=== PATIENT | female | born 1985 | race Caucasian/White ===

== ENCOUNTER 2017-08-03 14:54 | Emergency (ER) | payer MEDICAID ==
[~2017-08-03] VITALS: Ht 152.4 cm; Wt 63.0 kg
[~2017-08-03 14:54] MED LIST: LO LTAB PO; NAPR500 PO; PERC5TAB12 PO; PREN1CAP20 PO; ZOFR4TAB3 PO
[2017-08-03 15:04] VITALS: BP 138/68; PULSE 97; RESP 16; TEMP 98.4; O2SAT 100
[2017-08-03 18:21] LABS: AUTOMATED NEUTROPHIL # 6.4 TH/MM3 (1.8-7.7); BASOPHIL # 0.1 TH/MM3 (0-0.2); BASOPHIL % 0.8 % (0.0-2.0); EOSINOPHIL # 0.1 TH/MM3 (0-0.4); EOSINOPHIL % 1.2 % (0.0-4.0); HEMATOCRIT 41.8 % (35.0-46.0); HEMOGLOBIN 14.3 GM/DL (11.6-15.3); LYMPH % 25.3 % (9.0-44.0); LYMPHOCYTE # 2.5 TH/MM3 (1.0-4.8); MEAN CORPUSCULAR HEMOGLOBIN 30.4 PG (27.0-34.0); MEAN CORPUSCULAR HGB CONC 34.1 % (32.0-36.0); MONO % 7.7 % (0.0-8.0); MONOCYTE # 0.8 TH/MM3 (0-0.9); PLATELET COUNT 317 TH/MM3 (150-450); RED BLOOD COUNT 4.69 MIL/MM3 (4.00-5.30); RED CELL DISTRIBUTION WIDTH 13.7 % (11.6-17.2); WHITE BLOOD COUNT 9.9 TH/MM3 (4.0-11.0)
[2017-08-03 18:22] LABS: ALBUMIN 4.1 GM/DL (3.4-5.0); BICARBONATE 29.8 MEQ/L (21.0-32.0); BLOOD UREA NITROGEN 19 MG/DL (7-18); CALCIUM 9.4 MG/DL (8.5-10.1); CHLORIDE 106 MEQ/L (98-107); GLUCOSE,RANDOM 88 MG/DL (74-106); SODIUM (NA) 140 MEQ/L (136-145)
[2017-08-03 18:28] LABS: ALKALINE PHOSPHATASE 95 U/L (45-117); ALT (GPT) 36 U/L (10-53); AST (GOT) 45 U/L (15-37); CREATININE 1.01 MG/DL (0.50-1.00); GLOMERULAR FILTRATION RATE 64 ML/MIN (>89); TOTAL BILIRUBIN ADULT 0.2 MG/DL (0.2-1.0); TOTAL PROTEIN 8.1 GM/DL (6.4-8.2)
--- NOTE | 2017-08-03 20:34 | PD ---
HPI Chief Complaint: Abdominal Pain Time Seen by Provider: 20:18 Travel History International Travel<30 days: No Contact w/Intl Traveler<30days: No Traveled to known affect area: No History of Present Illness HPI The patient was seen and examined in the presence of the nurse. This patient is complaining of some low central sternal discomfort and pressure. States intermittent. It's been on and off for many months. She thought it was her gallbladder. She has had a gallbladder ultrasound in the past that showed gallstones. Pain is not worse with eating. She has not had fever or vomiting. Rare alcohol use. No alleviating factors. No exacerbating factors. Severity is moderate PFSH Past Medical History Hx Anticoagulant Therapy: No Cardiovascular Problems: No Chemotherapy: No Cerebrovascular Accident: No Diabetes: No Diminished Hearing: No Medical other: Yes (gallstones) Respiratory: No Tetanus Vaccination: < 5 Years ?: Not LMP: 07/29/17 : 1 Para: 1 : 1 Past Surgical History Surgical History: No Previous Surgery Section: Yes Hysterectomy: No Social History Alcohol Use: Yes (weekends) Tobacco Use: No Substance Use: No Allergies-Medications (Allergen,Severity, Reaction): Coded Allergies: No Known Allergies (Unverified Adverse Reaction, Unknown, 08/03/17) Reported Meds & Prescriptions Reported Meds & Active Scripts Active Naprosyn (Naproxen) 500 Mg Tab 500 Mg PO BID PRN Zofran ODT (Ondansetron HCl) 4 Mg Tab 4 Mg PO Q6HR PRN Percocet 5-325 mg (Oxycodone/Acetaminophen) Oxycodone 5/325 Acetaminophen Tab 1 Tab PO Q6H PRN Lo Loestrin Fe (Norethindrone Acetate-Ethinyl) Tab 1 Tab PO DAILY Prenate Mini 18-0.6-0.4-350 mg ( W/O Vit A W/ Fe Carbo) 1 Cap Cap 1 Tab PO DAILY Review of Systems General / Constitutional: No: Fever Eyes: No: Visual changes HENT: No: Headaches Cardiovascular: Positive: Chest Pain or Discomfort Respiratory: No: Shortness of Breath Gastrointestinal: Positive: Abdominal Pain Genitourinary: No: Dysuria Musculoskeletal: No: Pain Skin: No Rash Neurologic: No: Weakness Psychiatric: No: Depression Endocrine: No: Polydipsia Hematologic/Lymphatic: No: Easy Bruising Physical Exam Narrative GENERAL: Well-nourished, well-developed patient in no apparent distress. SKIN: Focused skin assessment reveals no rash and nodules. Skin is Warm and dry. HEAD: Atraumatic. Normocephalic. EYES: Pupils equal and round. No scleral icterus. No injection or drainage. ENT: No nasal bleeding or discharge. Mucous membranes pink and moist. NECK: Trachea midline. No JVD. CARDIOVASCULAR: Regular rate and rhythm. No murmur appreciated. RESPIRATORY: No accessory muscle use. Clear to auscultation. Breath sounds equal bilaterally. GASTROINTESTINAL: Abdomen soft, non-tender, nondistended. Hepatic and splenic margins not palpable. MUSCULOSKELETAL: No obvious deformities. No clubbing. No cyanosis. No edema. NEUROLOGICAL: Awake and alert. No obvious cranial nerve deficits. Motor grossly within normal limits. Normal speech. PSYCHIATRIC: Appropriate mood and affect; insight and judgment normal. Data Data Last Documented VS Vital Signs Date Time Temp Pulse Resp B/P (MAP) Pulse Ox O2 Delivery O2 Flow Rate FiO2 08/03/17 15:04 98.4 97 16 138/68 (91) 100 Orders Orders Complete Blood Count With Diff (08/03/17 15:20) Comprehensive Metabolic Panel (08/03/17 15:20) Urinalysis - C+S If Indicated (08/03/17 15:20) Ed Urine Pregnancytest Poc (08/03/17 15:20) Iv Access Insert/Monitor (08/03/17 15:20) Oxygen Administration (08/03/17 15:20) Oximetry (08/03/17 15:20) Lipase (08/03/17 15:20) Electrocardiogram (08/03/17 ) Chest, Single Ap (08/03/17 ) Troponin I (08/03/17 20:30) Ckmb (Isoenzyme) Profile (08/03/17 20:30) CKMB (08/03/17 20:40) CKMB% (08/03/17 20:40) Sodium Chlor 0.9% 1000 Ml Inj (Ns 1000 M (08/03/17 22:00) Sodium Chlor 0.9% 1000 Ml Inj (Ns 1000 M (08/03/17 22:00) Labs Laboratory Tests Test 08/03/17 17:32 08/03/17 20:40 White Blood Count 9.9 TH/MM3 Red Blood Count 4.69 MIL/MM3 Hemoglobin 14.3 GM/DL Hematocrit 41.8 % Mean Corpuscular Volume 89.0 FL Mean Corpuscular Hemoglobin 30.4 PG Mean Corpuscular Hemoglobin Concent 34.1 % Red Cell Distribution Width 13.7 % Platelet Count 317 TH/MM3 Mean Platelet Volume 8.0 FL Neutrophils (%) (Auto) 65.0 % Lymphocytes (%) (Auto) 25.3 % Monocytes (%) (Auto) 7.7 % Eosinophils (%) (Auto) 1.2 % Basophils (%) (Auto) 0.8 % Neutrophils # (Auto) 6.4 TH/MM3 Lymphocytes # (Auto) 2.5 TH/MM3 Monocytes # (Auto) 0.8 TH/MM3 Eosinophils # (Auto) 0.1 TH/MM3 Basophils # (Auto) 0.1 TH/MM3 CBC Comment DIFF FINAL Differential Comment Blood Urea Nitrogen 19 MG/DL Creatinine 1.01 MG/DL Random Glucose 88 MG/DL Total Protein 8.1 GM/DL Albumin 4.1 GM/DL Calcium Level 9.4 MG/DL Alkaline Phosphatase 95 U/L Aspartate Amino Transf (AST/SGOT) 45 U/L Alanine Aminotransferase (ALT/SGPT) 36 U/L Total Bilirubin 0.2 MG/DL Sodium Level 140 MEQ/L Potassium Level 4.1 MEQ/L Chloride Level 106 MEQ/L Carbon Dioxide Level 29.8 MEQ/L Anion Gap 4 MEQ/L Estimat Glomerular Filtration Rate 64 ML/MIN Lipase 231 U/L Total Creatine Kinase 1513 U/L Creatine Kinase MB 2.4 NG/ML Creatine Kinase MB % 0.2 % Troponin I LESS THAN 0.02 NG/ML [facility] Medical Decision Making Medical Screen Exam Complete: Yes Emergency Medical Condition: Yes Medical Record Reviewed: Yes Differential Diagnosis ACS, costochondritis, peptic ulcer disease, cholecystitis Narrative Course I have reviewed the patient's electronic medical record. Reviewed her ultrasound from 2016 which showed gallstones but no signs of cholecystitis IV placed labs sent CBC and metabolic studies are normal Lipase and LFTs are normal I reviewed her EKG which shows no acute ST elevation I reviewed her chest x-ray which is normal CK and troponin were done. Troponin is normal. CK is 1500 with a normal MB percent. This suggests mild rhabdomyolysis. I gave her 2 L of normal saline IV Her abdomen is soft and benign and nontender No clinical suspicion of acute cholecystitis. She is stable for outpatient follow-up. She looks clinically well Diagnosis Primary Impression: Non-cardiac chest pain Additional Impressions: Epigastric pain Rhabdomyolysis Qualified Codes: M62.82 - Rhabdomyolysis Additional Instructions: The patient was advised to follow up with their physician and return if they worsen. Med/Other Pt SpecificInfo: Other Disposition: 01 DISCHARGE HOME Condition: Stable Gumaro Martines MD Aug 03, 2017 20:34
--- NOTE | 2017-08-03 21:04 | RADRPT ---
EXAM DATE/TIME: 08/03/2017 20:44 [facility] COMPARISON: CHEST SINGLE AP, November 23, 2015, 13:52. INDICATIONS : Chest pain and heaviness. MEDICAL HISTORY : . Cholelithiasis. SURGICAL HISTORY : section. ENCOUNTER: Initial ACUITY: 1 day PAIN SCORE: 4/10 LOCATION: Bilateral chest FINDINGS: A single view of the chest demonstrates the lungs to be symmetrically aerated without evidence of mas s, infiltrate or effusion. The cardiomediastinal contours are unremarkable. Osseous structures are intact. CONCLUSION: No acute disease. Lucien Marin MD on August 03, 2017 at 21:01 Board Certified Radiologist. This report was verified electronically.
[2017-08-03 21:54] LABS: TROPONIN I LESS THAN 0.02 NG/ML (0.02-0.05)
[2017-08-03] MEDS ORDERED: SODIUM CHLOR 0.9% 1000 ML INJ 1,000 ML IV ONE ×2 (22:00)
--- NOTE | 2017-08-04 19:32 | EKG ---
Date Performed: 08/03/2017 Time Performed: 20:54:48 PTAGE: 32 years EKG: Sinus rhythm POSSIBLE RIGHT VENTRICULAR CONDUCTION DELAY BORDERLINE ECG NO PREVIOUS TRACING DOCTOR: Tyrone Espana Interpretating Date/Time 08/04/2017 19:29:39
== END 2017-08-03 23:58 | disposition home or self-care (01) ==
LOC: NEPD 14:54
DX: R07.89 Other chest pain (principal); R10.13 Epigastric pain; M62.82 Rhabdomyolysis
CPT/HCPCS: 71045; 80053; 82550; 82552; 83690; 84484; 84703; 85025; 93005; 96360; 99285; J7030